=== PATIENT | male | born 2000 | race Caucasian/White ===

== ENCOUNTER → 2020-09-22 | Outpatient (CLI) | payer OTHER ==
--- NOTE | 2020-09-22 19:41 | US ---
EXAMINATION TYPE: US scrotum with doppler. DATE OF EXAM: 09/22/2020 COMPARISON: NONE CLINICAL HISTORY: 19-year-old male N43.2 Other hydrocele. TECHNIQUE: Grayscale and color Doppler Duplex imaging performed of the scrotum. FINDINGS: EXAM MEASUREMENTS: TESTICLES: Right Testicle: 5.8 x 3.0 x 3.1 cm Left Testicle: 5.3 x 2.4 x 3.1 cm EPIDIDYMIS HEAD: Right Epididymis: probable 1.4 cm Left Epididymis: unable to visualize Doppler performed to assess for testicular vascularity; good bilateral color flow and waveforms are s een. There is no evidence of testicular torsion. Presence of hydroceles: large on the right measuring 10.8 x 5.9 x 7.2cm Presence of varicoceles: unable to assess on right due to large hydrocele. None on the left. IMPRESSION: 1. No sonographic evidence for testicular mass or torsion. 2. Large hydrocele on the right measuring up to 10.8 cm.
== END | disposition home or self-care (01) ==
LOC: RADUSWWP 16:06
PROVIDERS: ATTEND Family Medicine
DX: N43.3 Hydrocele, unspecified (principal)
CPT/HCPCS: 76870; 93975